=== PATIENT | male | born 1975 | race Caucasian/White ===

== ENCOUNTER 2017-08-14 18:48 | Emergency (ER) | payer BC ==
[~2017-08-14] VITALS: Ht 175.3 cm; Wt 90.7 kg
[2017-08-14] MEDS ORDERED: SYNTHROID50 MCG (20:10)
== END 2017-08-14 22:23 | disposition home or self-care (01) ==
LOC: ER 18:48
DX: H60.8X1 Other otitis externa, right ear (principal)